=== PATIENT | male | born 1965 | race African-American/Black ===

== ENCOUNTER 2018-11-10 14:02 | Outpatient (CLI) | payer OTHER ==
--- NOTE | 2018-11-10 17:36 | Diagnostic Imaging Report ---
MIREYA DIAZ [facility] [id number] [facility] [address] [place], [place]. [address] Report Submission Date: Nov 10, 2018 5:02:28 PM [employer] Patient Study Name: OBDULIA BLACK Date: Nov 10, 2018 2:36:56 PM [employer] Modality Type: CT\SR Gender: M Description: CT CHEST W/ CONTRAST : 65 Institution: [facility] Physician: MIREYA DIAZ Examination: CT chest History: Pt states chest pain, SOA, Dizziness x2 days. Hx of open heart surgery x6 months ago Comparison exams: None available Technique: CT chest with contrast protocol Findings: Lung pleura, parenchyma and pulmonary vascularity are without irregularity. Thoracic aorta without evidence for aneurysm or dissection. Anterior mediastinum and bridgette are without gross mass or pathologic adenopathy. Cardiac silhouette not enlarged. No pericardial effusion. Few vascular calcifications. Lower neck structures, upper abdominal organs, and osseous structures are without gross abnormality. Sternotomy wires. Impression: No acute appearing parenchymal process. Electronically signed on Nov 10, 2018 5:02:28 PM [employer]TER by: Myron RIVERA
== END 2018-11-10 14:03 ==
LOC: RAD 14:02
PROVIDERS: ATTEND Family Medicine
DX: R06.00 Dyspnea, unspecified (principal)
CPT/HCPCS: 71260; Q9967